=== PATIENT | male | born 1980 | race Caucasian/White ===

== ENCOUNTER 2016-10-16 16:37 | Emergency (ER) | payer BC ==
[~2016-10-16 16:37] MED LIST: AMLODIPINE; FOLIC ACID0.8 MG PO; HUMIRA40 MG/0.2 SC; HYDROXYCHLOROQ200 M1 PO; IRON1 TAB PO; KEFLEX500 M1 PO; LISINOPRIL-HCT1 EAC1 PO; LISINOPRIL20 M1 PO; METHOTREXATE2.5 M1 PO; METHOTREXATE2.5 MG PO; MOTRIN800 MG PO; MULTIVITAMINS1 EAC6 PO; NORCO 5/325 TAB1 TAB PO; PREDNISONE5 M1 PO; PREDNISONE5 MG PO; TYLENOL #31 TA1 PO
[2016-10-16 18:12] LABS: URINE LEUKOCYTE ESTERASE NEGATIVE (NEG); URINE PROTEIN MODERATE (NEG); URINE SPECIFIC GRAVITY 1.025 (1.003-1.030)
[2016-10-16 18:13] LABS: URINE APPEARANCE HAZY; URINE BILIRUBIN NEGATIVE (NEG); URINE BLOOD MODERATE (NEG); URINE COLOR YELLOW; URINE GLUCOSE (UA) SMALL (NEG); URINE KETONE NEGATIVE (NEG); URINE NITRITE NEGATIVE (NEG)
[2016-10-16 18:17] LABS: URINE MUCUS 2+
[2016-10-16 18:18] LABS: URINE RBC 0 /[HPF] (0-5)
[2016-10-16 18:22] LABS: BASO % 0.2 % (0-2); EOS % 2.9 % (0-7); EOSINOPHIL ABSOLUTE COUNT 0.2 tho/cmm (0.0-0.7); HCT-HEMATOCRIT 36.5 % (36.0-53.5); IMMATURE GRANULOCYTES ABSOLUTE 0.02 tho/cmm (0-0.03); IMMATURE GRANULOCYTES PERCENT 0.3 % (0-0.3); LYMPH % 24.7 % (20-45); LYMPH ABSOLUTE COUNT 1.5 tho/cmm (0.8-4.5); MCH (MEAN CORPUSCULAR HGB) 27.2 pg (28.0-32.0); MCHC MEAN CORPUSCULAR HGB CONC 32.9 % (32.0-36.0); MCV (MEAN CELL VOLUME) 82.8 fl (82.0-96.0); MEAN PLATELET VOLUME 9.8 cmc (9.4-12.4); MONO % 7.2 % (0-12); MONOCYTE ABSOLUTE COUNT 0.4 tho/cmm (0.0-1.2); NEUTROPHIL ABSOLUTE COUNT 3.8 tho/cmm (1.6-8.0); NEUTROPHIL-AUTOMATED 3.8 tho/cmm (1.6-8.0); NEUTROPHILS % 64.7 % (40-80); PLATELET COUNT 228 tho/cmm (150-450); RED BLOOD COUNT 4.41 mil/cmm (4.40-5.70); RED CELL DISTRIBUTION WIDTH 15.5 % (12.4-16.4); WHITE BLOOD COUNT 5.9 tho/cmm (4.0-10.0)
[2016-10-16] MEDS ORDERED: LISINOPRIL-HCT1 EAC1 PO (18:30)
[2016-10-16] MEDS ORDERED: NORVASC5 M2 PO (18:31)
[2016-10-16] MEDS ORDERED: JANUMET 50-1,01 EACH PO (18:32)
[2016-10-16 18:35] LABS: ANION GAP 10 mmol/L (0-20); BLOOD UREA NITROGEN 7 mg/dl (6-24); CALCIUM 8.6 mg/dl (8.5-10.5); CARBON DIOXIDE-VENOUS 27 mmol/L (22-32); CHLORIDE 105 mmol/l (96-110); CREATININE 0.89 mg/dl (0.60-1.30); GLUCOSE 227 mg/dL (70-110); POTASSIUM 3.9 mmol/L (3.7-5.1); SODIUM 138 mmol/L (135-145); eGFR VALUE FOR BLACK >90 mL/Min
[2016-10-16] MEDS ORDERED: ZOFRAN ODT4 MG PO (20:01)
== END 2016-10-16 20:19 ==
LOC: EDMED 16:37
PROVIDERS: Emergency Medicine
DX: T38.3X5A Adverse effect of insulin and oral hypoglycemic [antidiabetic] drugs, initial encounter (principal); E86.0 Dehydration; R19.7 Diarrhea, unspecified; I10 Essential (primary) hypertension; E11.9 Type 2 diabetes mellitus without complications; M06.9 Rheumatoid arthritis, unspecified; Z79.84 Long term (current) use of oral hypoglycemic drugs; Z79.899 Other long term (current) drug therapy; Z87.891 Personal history of nicotine dependence
CPT/HCPCS: J2405; J7030